=== PATIENT | female | born 1950 | race Caucasian/White ===

== ENCOUNTER 2016-11-13 17:59 | Emergency (ER) | payer OTHER ==
[~2016-11-13] VITALS: Ht 152.4 cm; Wt 52.6 kg
[2016-11-13] MEDS ORDERED: SIMVASTATIN20 MG PO (18:10)
[2016-11-13] MEDS ORDERED: LO-DOSE ASPIRIN81 M2 PO (18:10)
[2016-11-13] MEDS ORDERED: RESTASIS 01 DROP/0.4 BOTH EYES (18:11)
[2016-11-13] MEDS ORDERED: GLUCOSAMINE &1 EAC1 PO (18:11)
[2016-11-13] MEDS ORDERED: OMEGA 3 500 SO1 EACH PO (18:11)
[2016-11-13] MEDS ORDERED: ULTRACET1 TABLET PO (19:53)
[2016-11-13] MEDS ORDERED: MOTRIN800 MG PO (19:53)
[2016-11-13] MEDS ORDERED: CLINDAMYCIN HC300 MG PO (20:06)
[2016-11-13 20:25] VITALS: BP 154/83
== END 2016-11-13 20:27 | disposition home or self-care (01) ==
LOC: EME 17:59
DX: S01.511A Laceration without foreign body of lip, initial encounter (principal); S62.111A Displaced fracture of triquetrum [cuneiform] bone, right wrist, initial encounter for closed fracture; S80.01XA Contusion of right knee, initial encounter; W18.30XA Fall on same level, unspecified, initial encounter; Z23 Encounter for immunization; Z88.0 Allergy status to penicillin
CPT/HCPCS: 73110; 73564; 99281; 99284